=== PATIENT | male | born 1960 | race Caucasian/White ===

== ENCOUNTER 2017-08-19 18:11 | Emergency (ER) | payer OTHER ==
--- NOTE | 2017-08-19 18:14 | PDOC ---
History of Present Illness - General History Source: Patient Exam Limitations: Intoxication - History of Present Illness Initial Comments: 08/19/17 18:16 The patient is a 56 year old male, with a significant past medical history of HTN, who presents to the emergency department with EtOH abuse. The patient was sent from [facility] where he was being admitted for detox. EMS reports the patient was inebriated and unable to answer questions, and reports his breathalyzer being over 400. He denies any recent fevers, chills, headache or dizziness. Allergies: NKA Past surgical history: None reported. Social History: EtOH abuse. Primary Care Physician: None reported. <Taj Alarcon - Last Filed: 08/19/17 21:40> <Peggy Mchugh - Last Filed: 08/20/17 23:04> - General Stated Complaint: INTOX Time Seen by Provider: 08/19/17 18:13 Past History <Taj Alarcon - Last Filed: 08/19/17 21:40> - Past Medical History GI Disorders: Yes HTN: Yes - Suicide/Smoking/Psychosocial Hx Smoking History: Current every day smoker Number of Cigarettes Smoked Daily: 20 'Breaking Loose' booklet given: 11/02/13 Hx Alcohol Use: Yes Substance Use Type: None <Peggy Mchugh - Last Filed: 08/20/17 23:04> - Past Medical History Allergies/Adverse Reactions: Allergies Allergy/AdvReac Type Severity Reaction Status Date / Time No Known Allergies Allergy Verified 08/20/17 11:41 Home Medications: Ambulatory Orders levETIRAcetam [Keppra -] 500 mg PO BID 08/20/17 Review of Systems - Review of Systems Able to Perform ROS?: No (Intoxication) <Taj Alarcon - Last Filed: 08/19/17 21:40> *Physical Exam - Physical Exam Comments: 08/19/17 18:17 GENERAL: Awake, alert. Confusion on time and place. Alcohol on breath. HEAD: No signs of trauma EYES: PERRLA, EOMI, sclera anicteric, conjunctiva clear ENT: Auricles normal inspection, hearing grossly normal, nares patent, oropharynx clear without exudates. Moist mucosa NECK: Normal ROM, supple, no lymphadenopathy, JVD, or masses LUNGS: Breath sounds equal, clear to auscultation bilaterally. No wheezes, and no crackles HEART: Regular rate and rhythm, normal S1 and S2, no murmurs, rubs or gallops ABDOMEN: Soft, nontender, normoactive bowel sounds. No guarding, no rebound. No masses EXTREMITIES: Normal range of motion, no edema. No clubbing or cyanosis. No cords, erythema, or tenderness NEUROLOGICAL: Cranial nerves II through XII grossly intact. SKIN: Warm, Dry, normal turgor, no rashes or lesions noted. <Taj Alarcon - Last Filed: 08/19/17 21:40> ED Treatment Course - LABORATORY CBC & Chemistry Diagram: 08/19/17 18:55 08/19/17 18:55 <Taj Alarcon - Last Filed: 08/19/17 21:40> - LABORATORY CBC & Chemistry Diagram: 08/19/17 18:55 08/19/17 18:55 <Peggy Mchugh - Last Filed: 08/20/17 23:04> *DC/Admit/Observation/Transfer - Attestations Scribe Attestion: 08/19/17 18:17 Documentation prepared by Taj Alarcon, acting as medical and scientific illustrator for Peggy Mchugh MD. <Taj Alarcon - Last Filed: 08/19/17 21:40> <Peggy Mchugh - Last Filed: 08/20/17 23:04> Diagnosis at time of Disposition: Alcohol abuse - Discharge Dispostion Disposition: HOME Condition at time of disposition: Stable - Patient Instructions Printed Discharge Instructions: DI for Alcohol Abuse
[2017-08-19 18:28] VITALS: BP 134/92; PULSE 90; TEMP 98; BMI 29.5
[2017-08-19 19:01] LABS: BASO % 0.4 % (0-2.0); EOS % 0.1 % (0-4.5); HEMATOCRIT 46.2 % (35.4-49); HEMOGLOBIN 15.9 GM/dL (11.7-16.9); LYMPH % 31.5 % (8-40); MCHC 34.3 g/dl (32.0-35.9); MEAN CELL VOLUME 96.4 fl (80-96); MEAN PLT VOLUME 7.8 fl (7.5-11.1); MONO % 9.4 % (3.8-10.2); NEUT % 58.6 % (42.8-82.8); PLATELET COUNT 128 K/MM3 (134-434); RDW 13.6 % (11.9-15.9); WHITE BLOOD COUNT 5.2 K/mm3 (4.0-10.0)
[2017-08-19] MEDS ORDERED: FOLIC ACID INJECTION - 1 MG, THIAMINE HCL 100 MG, MULTIVIT INJECTION ADULT 10 ML in SOD... IVPB ONE (19:04)
[2017-08-19] MEDS ORDERED: SODIUM CHLORIDE IVPB ONE (19:17)
[2017-08-19] MEDS ORDERED: MULTIVIT IVPB ONE (19:17)
[2017-08-19] MEDS ORDERED: FOLIC ACID IVPB ONE (19:17)
[2017-08-19] MEDS ORDERED: THIAMINE HCL 100 MG TABLET (FP) PO ONE (19:30)
[2017-08-19 19:32] LABS: ALBUMIN 4.4 g/dl (3.4-5.0); ALK PHOS 76 U/L (45-117); ANION GAP 13 (8-16); BILIRUBIN,TOTAL 0.6 mg/dL (0.2-1.0); BLOOD UREA NITROGEN 11 mg/dL (7-18); CALCIUM 8.1 mg/dL (8.5-10.1); CHLORIDE 98 mmol/L (98-107); CO2 26 mmol/L (21-32); CREATININE 0.8 mg/dL (0.7-1.3); GLUCOSE,RANDOM 108 mg/dL (74-106); POTASSIUM 3.7 mmol/L (3.5-5.1); SGOT/AST 276 U/L (15-37); SGPT/ALT 233 U/L (12-78); SODIUM 137 mmol/L (136-145); TOT PROT 8.1 g/dl (6.4-8.2)
[2017-08-20] MEDS ORDERED: ONDANSETRON 4 MG/2 ML VIAL ONE
--- NOTE | 2017-08-20 03:04 | PDOC ---
*Physical Exam - Vital Signs Last Vital Signs Temp Pulse Resp BP Pulse Ox 98.0 F 90 18 134/92 99 08/19/17 18:17 08/19/17 18:17 08/19/17 18:17 08/19/17 18:17 08/19/17 18:17 ED Treatment Course - LABORATORY CBC & Chemistry Diagram: 08/19/17 18:55 08/19/17 18:55 - ADDITIONAL ORDERS Additional order review: Laboratory Results 08/19/17 08/19/17 18:55 18:55 Sodium 137 Potassium 3.7 Chloride 98 Carbon Dioxide 26 Anion Gap 13 BUN 11 Creatinine 0.8 Creat Clearance w eGFR > 60 Random Glucose 108 H Calcium 8.1 L Total Bilirubin 0.6 AST 276 H ALT 233 H Alkaline Phosphatase 76 Total Protein 8.1 Albumin 4.4 Alcohol, Quantitative 459.1 H* 08/19/17 18:55 RBC 4.80 MCV 96.4 H MCHC 34.3 RDW 13.6 MPV 7.8 Neutrophils % 58.6 Lymphocytes % 31.5 Monocytes % 9.4 Eosinophils % 0.1 Basophils % 0.4 - Medications Given in the ED: ED Medications Discontinued Medications Generic Name Dose Route Start Last Admin Trade Name Wilbertq PRN Reason Stop Dose Admin Folic Acid 1 mg/ Multivitamins 1,000 mls @ 125 mls/hr 08/19/17 19:17 20:12 /Minerals 10 ml/ Sodium IVPB 08/20/17 03:03 125 mls/hr Chloride ONCE ONE Administration Thiamine HCl 100 mg 08/19/17 19:30 08/19/17 20:12 Vitamin B1 - PO 08/19/17 19:31 100 mg ONCE ONE Administration Medical Decision Making - Medical Decision Making 08/20/17 04:21 Pt endorsed to me by Dr. Mchugh at 3am at end of shift. Presented with bizarre behavior, found to be intoxicated. Sent by [facility]. Will monitor to clinical sobriety and then send back to detox if he wishes to go back. 08/20/17 06:39 Pt reassessed. Pt asleep but awakens to voice, moderate tremors in hands. Will give librium. He requests detox. I called detox, they have space available. Will transfer him to [facility]. *DC/Admit/Observation/Transfer Diagnosis at time of Disposition: Alcohol abuse - Discharge Dispostion Disposition: HOME Condition at time of disposition: Stable Admit: No - Referrals - Patient Instructions Printed Discharge Instructions: DI for Alcohol Abuse - Post Discharge Activity
[2017-08-20] MEDS ORDERED: chlordiazePOXIDE HCL 25 MG CAPSULE ONE (06:45)
[2017-08-20] MEDS ORDERED: chlordiazePOXIDE HCL 25 MG CAPSULE PO ONE (06:47)
== END 2017-08-20 07:15 | disposition home or self-care (01) ==
LOC: JER 18:11
PROC: 3E033GC Introduction of Other Therapeutic Substance into Peripheral Vein, Percutaneous Approach (ICD-10-PCS; principal; 2017-08-19)
DX: F10.220 Alcohol dependence with intoxication, uncomplicated (principal); Y90.8 Blood alcohol level of 240 mg/100 ml or more
CPT/HCPCS: 36415; 70450-TC; 80053; 80307; 85025; 99282-25

== ENCOUNTER 2017-09-14 21:31 | Inpatient (IN) | payer OTHER ==
--- NOTE | 2017-09-14 21:49 | PDOC ---
History of Present Illness - General History Source: Patient Exam Limitations: No Limitations - History of Present Illness Initial Comments: 09/14/17 22:53 Patient is a 56 year male with a significant past medical history of HTN, and alcohol dependency, who presents to the ED with complaints of intoxication. Patient reports being brought into the ED by his daughter due to being heavily intoxicated as well as being unable to stand up. He reports falling earlier today as well as hitting his head when he hit the ground but does not state experiencing any pain. Patient reports ingestion gallons of hard liquor every day. Denies chest pain, Sob. Denies nausea, vomiting. Denies change in vision, slurred speech. Denies contact with sick individuals, out of state travelling. Denies any other symptoms. Allergies: None Social history: Current smoker. Current alcohol use. No illicit drugs. Surgical history: None PMD: None <Yakov Carpio - Last Filed: 09/14/17 22:53> <Mohini Castano - Last Filed: 09/15/17 04:37> - General Stated Complaint: INTOX Time Seen by Provider: 09/14/17 21:48 Past History <Yakov Carpio - Last Filed: 09/14/17 22:53> - Past Medical History Anemia: No Asthma: No Cancer: No Cardiac Disorders: No CVA: No COPD: No Dementia: No Diabetes: No GI Disorders: No Disorders: No HTN: Yes (not on meds.) Hypercholesterolemia: No Kidney Stones: No Liver Disease: No Seizures: Yes (etoh related seizures states last was yesterday.) Thyroid Disease: No - Reproductive History Testicular Surgery: No - Suicide/Smoking/Psychosocial Hx Smoking History: Former smoker Have you smoked in the past 12 months: Yes Number of Cigarettes Smoked Daily: 40 If you are a former smoker, when did you quit?: Pt states he quit 1 month ago. 'Breaking Loose' booklet given: 08/20/17 Hx Alcohol Use: Yes Drug/Substance Use Hx: No Substance Use Type: Alcohol Hx Substance Use Treatment: Yes (last detox a year ago at [facility]) <Mohini Castano - Last Filed: 09/15/17 04:37> - Past Medical History Allergies/Adverse Reactions: Allergies Allergy/AdvReac Type Severity Reaction Status Date / Time No Known Allergies Allergy Verified 09/14/17 22:17 Home Medications: Ambulatory Orders Nebivolol HCl [Bystolic] 5 mg PO DAILY #30 tablet 08/24/17 levETIRAcetam [Keppra -] 500 mg PO BID #60 tablet 08/24/17 Review of Systems - Review of Systems Able to Perform ROS?: No (intox) <Mohini Castano - Last Filed: 09/15/17 04:37> *Physical Exam - Vital Signs Last Vital Signs Temp Pulse Resp BP Pulse Ox 97.2 F L 68 16 145/90 99 09/14/17 22:00 09/14/17 22:00 09/14/17 22:00 09/14/17 22:00 09/14/17 22:00 <Yakov Carpio - Last Filed: 09/14/17 22:53> - Physical Exam Comments: GENERAL: Awake, alert, oriented to place and person. +AOB. HEAD: No signs of trauma EYES: PERRLA, EOMI, sclera anicteric, conjunctiva clear ENT: Auricles normal inspection, hearing grossly normal, nares patent, oropharynx clear without exudates. Moist mucosa NECK: Normal ROM, supple, no lymphadenopathy, JVD, or masses LUNGS: Breath sounds equal, clear to auscultation bilaterally. No wheezes, and no crackles HEART: Regular rate and rhythm, normal S1 and S2, no murmurs, rubs or gallops ABDOMEN: Soft, nontender, normoactive bowel sounds. No guarding, no rebound. No masses EXTREMITIES: Normal range of motion, no edema. No clubbing or cyanosis. No cords, erythema, or tenderness NEUROLOGICAL: Cranial nerves II through XII grossly intact. Normal speech. Motor and sensation intact. Gait not tested due to intoxication. SKIN: Warm, Dry, normal turgor, no rashes or lesions noted. <Mohini Castano - Last Filed: 09/15/17 04:37> Heart Score/ECG Review - ECG Impressions Comment:: EKG read 04:29- Sinus tach 118 bpm, occasional PVCs Similar to EKG from Aug 20 2017 <Mohini Castano - Last Filed: 09/15/17 04:37> ED Treatment Course - LABORATORY CBC & Chemistry Diagram: 09/15/17 00:20 09/15/17 01:47 <Mohini Castano - Last Filed: 09/15/17 04:37> Medical Decision Making - Medical Decision Making 09/15/17 04:09 Pt admitted, as he is still unable to stand with steady gait yet already showing signs of withdrawal. <Mohini Castano - Last Filed: 09/15/17 04:37> *DC/Admit/Observation/Transfer - Attestations Scribe Attestion: 09/14/17 22:54 Documentation prepared by Yakov Carpio, acting as medical affairs manager for Mohini Castano MD, /DO. <Yakov Carpio - Last Filed: 09/14/17 22:53> - Discharge Dispostion Admit: Yes <Mohini Castano - Last Filed: 09/15/17 04:37> Diagnosis at time of Disposition: Alcohol abuse, Alcohol dependence with uncomplicated withdrawal Pancreatitis Qualifiers: Chronicity: acute Pancreatitis type: alcohol induced Acute pancreatitis complication: unspecified Qualified Code(s): K85.20 - Alcohol induced acute pancreatitis without necrosis or infection - Discharge Dispostion Condition at time of disposition: Guarded
[2017-09-14 22:17] VITALS: BMI 27.2
[2017-09-14] MEDS ORDERED: chlordiazePOXIDE HCL 25 MG CAPSULE PO ONE (23:26)
[2017-09-15] MEDS ORDERED: chlordiazePOXIDE HCL 25 MG CAPSULE ONE ×3 (00:27→16:53)
[2017-09-15] MEDS ORDERED: ONDANSETRON 4 MG/2 ML VIAL IVPUSH ONE ×2 (00:35→04:46)
[2017-09-15] MEDS ORDERED: ONDANSETRON 4 MG/2 ML VIAL ONE ×3 (00:39→07:16)
[2017-09-15 01:09] LABS: BASO % 0.1 % (0-2.0); HEMATOCRIT 40.5 % (35.4-49); HEMOGLOBIN 14.2 GM/dL (11.7-16.9); LYMPH % 19.1 % (8-40); MCH 34.4 pg (25.7-33.7); MCHC 35.2 g/dl (32.0-35.9); MEAN CELL VOLUME 97.8 fl (80-96); MONO % 7.9 % (3.8-10.2); NEUT % 72.9 % (42.8-82.8); RBC 4.14 M/mm3 (4.00-5.60); RDW 16.8 % (11.9-15.9)
[2017-09-15 01:55] LABS: PLATELET ESTIMATE DECREASED
[2017-09-15 02:02] LABS: MEAN PLT VOLUME 8.8 fl (7.5-11.1); PLATELET COUNT 105 K/MM3 (134-434)
[2017-09-15 02:59] LABS: ALBUMIN 3.8 g/dl (3.4-5.0); ALK PHOS 59 U/L (45-117); ANION GAP 18 (8-16); BLOOD UREA NITROGEN 25 mg/dL (7-18); CALCIUM 7.9 mg/dL (8.5-10.1); CHLORIDE 90 mmol/L (98-107); CO2 25 mmol/L (21-32); CREATININE 0.7 mg/dL (0.7-1.3); GLUCOSE,RANDOM 161 mg/dL (74-106); SGPT/ALT 210 U/L (12-78); SODIUM 133 mmol/L (136-145); TOT PROT 7.1 g/dl (6.4-8.2)
[2017-09-15 03:14] LABS: LIPASE 1755 U/L (73-393); POTASSIUM 3.3 mmol/L (3.5-5.1)
[2017-09-15 03:15] LABS: SGOT/AST 437 U/L (15-37)
[2017-09-15] MEDS ORDERED: SODIUM CHLORIDE 1,000 ML IV SCH ×3 (03:30→05:45)
--- NOTE | 2017-09-15 05:31 | HP ---
CHIEF COMPLAINT: PCP: HISTORY OF PRESENT ILLNESS: 56 M HTN ETOH use comes in intoxicated. drinks 1 gallon hennesy, and or beer a day. started as soon as he left detox on 08/24/17. having N/V, tremors. says still taking his seizure medication . said he tripped and fell earlier today leading to bruising on his back. denies LOC at the time. Social history: Current smoker. Current alcohol use. No illicit drugs. Surgical history: None PMD: None ER course was notable for: (1) IVF, Zofran, Librium, Ativan Allergies No Known Allergies Allergy (Verified 09/14/17 22:17) HOME MEDICATIONS: Home Medications Medication Instructions Recorded Nebivolol HCl [Bystolic] 5 mg PO DAILY #30 tablet 08/24/17 levETIRAcetam [Keppra -] 500 mg PO BID #60 tablet 08/24/17 REVIEW OF SYSTEMS CONSTITUTIONAL: Absent: fever, chills, diaphoresis, generalized weakness, malaise, loss of appetite, weight change HEENT: Absent: rhinorrhea, nasal congestion, throat pain, throat swelling, difficulty swallowing, mouth swelling, ear pain, eye pain, visual changes CARDIOVASCULAR: Absent: chest pain, syncope, palpitations, irregular heart rate, lightheadedness , peripheral edema RESPIRATORY: Absent: cough, shortness of breath, dyspnea with exertion, orthopnea, wheezing, stridor, hemoptysis GASTROINTESTINAL: Absent: abdominal pain, abdominal distension, nausea, vomiting, diarrhea, constipation, melena, hematochezia GENITOURINARY: Absent: dysuria, frequency, urgency, hesitancy, hematuria, flank pain, genital pain MUSCULOSKELETAL: Absent: myalgia, arthralgia, joint swelling, back pain, neck pain SKIN: Absent: rash, itching, pallor HEMATOLOGIC/IMMUNOLOGIC: Absent: easy bleeding, easy bruising, lymphadenopathy, frequent infections ENDOCRINE: Absent: unexplained weight gain, unexplained weight loss, heat intolerance, cold intolerance NEUROLOGIC: Absent: headache, focal weakness or paresthesias, dizziness, unsteady gait, seizure, mental status changes, bladder or bowel incontinence PSYCHIATRIC: Absent: anxiety, depression, suicidal or homicidal ideation, hallucinations. PHYSICAL EXAMINATION Vital Signs - 24 hr 09/14/17 09/14/17 22:00 23:01 Temperature 97.2 F L Pulse Rate 68 Respiratory 16 Rate Blood Pressure 145/90 O2 Sat by Pulse 99 99 Oximetry (%) GENERAL: Awake, alert, moderate distress HEAD: Normal with no signs of trauma. NECK: Normal range of motion, supple without lymphadenopathy, JVD, or masses. LUNGS: Breath sounds equal, clear to auscultation bilaterally. No wheezes, and no crackles. No accessory muscle use. HEART: Regular rate and rhythm, normal S1 and S2 without murmur, rub or gallop. ABDOMEN: Soft, nontender, not distended, normoactive bowel sounds, no guarding, no rebound, no masses. No hepatomegaly or splenomegaly. MUSCULOSKELETAL: Normal range of motion at all joints. No bony deformities or tenderness. No CVA tenderness. UPPER EXTREMITIES: 2+ pulses, warm, well-perfused. No cyanosis. No clubbing. No peripheral edema. LOWER EXTREMITIES: 2+ pulses, warm, well-perfused. No calf tenderness. No peripheral edema. PSYCHIATRIC: Cooperative. denies hallucinations SKIN: bruising on back in multiple areas, non tender Laboratory Results - last 24 hr 09/15/17 09/15/17 09/15/17 00:20 00:20 01:47 WBC 6.0 D RBC 4.14 Hgb 14.2 Hct 40.5 MCV 97.8 H MCH 34.4 H MCHC 35.2 RDW 16.8 H D Plt Count 105 L MPV 8.8 Neutrophils % 72.9 D Lymphocytes % 19.1 D Monocytes % 7.9 Eosinophils % 0.0 D Basophils % 0.1 Platelet Estimate Decreased Platelet Comment No clumping noted Sodium Cancelled 133 L Potassium Cancelled 3.3 L Chloride Cancelled 90 L Carbon Dioxide Cancelled 25 Anion Gap Cancelled 18 H BUN Cancelled 25 H D Creatinine Cancelled 0.7 Creat Clearance w eGFR Cancelled > 60 Random Glucose Cancelled 161 H D Calcium Cancelled 7.9 L Total Bilirubin Cancelled 1.0 D AST Cancelled 437 H D ALT Cancelled 210 H Alkaline Phosphatase Cancelled 59 Total Protein Cancelled 7.1 Albumin Cancelled 3.8 Lipase Cancelled 1755 H Alcohol, Quantitative Cancelled 09/15/17 01:47 WBC RBC Hgb Hct MCV MCH MCHC RDW Plt Count MPV Neutrophils % Lymphocytes % Monocytes % Eosinophils % Basophils % Platelet Estimate Platelet Comment Sodium Potassium Chloride Carbon Dioxide Anion Gap BUN Creatinine Creat Clearance w eGFR Random Glucose Calcium Total Bilirubin AST ALT Alkaline Phosphatase Total Protein Albumin Lipase Alcohol, Quantitative 292.73 H* ASSESSMENT/PLAN: 56M with ETOH pancreatitis, moderately severe ETOH withdrawal, hypokalemia PAncreatitis NPO IVF LR@ 200 replete electrolytes CXR LDH ETOH withdrawal, CIWA score ~15 ativan 2q2 IV prn standing librium titrate accordingly tele monitor for now hx Seizures - resume keppra HTN - bystolic DVT ppx Visit type - Emergency Visit Emergency Visit: Yes ED Registration Date: 09/15/17 Care time: The patient presented to the Emergency Department on the above date and was hospitalized for further evaluation of their emergent condition. - New Patient This patient is new to me today: Yes Date on this admission: 09/15/17 - Critical Care Critical Care patient: No Hospitalist Screening - Colonoscopy Questionnaire Colonoscopy Questionnaire: Colonoscopy Questionnaire - Patient: 50 - 75 years old and never had a screening colonoscopy: Yes History of colon or rectal polyps, or CA: No History of IBD, Crohn's disease or UC: No History of abdominal radiation therapy as a child: No - Relative: 1 with colon or rectal CA, or polyps at age 60 or younger: Unknown Colon or rectal CA diagnosed at age 45 or younger: Unknown Multiple relatives with colon or rectal CA: Unknown - Outcome: Screening Result: Positive Screen
[2017-09-15] MEDS ORDERED: MAGNESIUM SULF 50% (8.12 MEQ/2 ML-1 GM VIAL) IVPB ONE (05:44)
[2017-09-15] MEDS ORDERED: POTASSIUM CHLORIDE TABS 20 MEQ TABLET.ER (FP) PO ONE (05:44)
[2017-09-15] MEDS ORDERED: LACTATED RINGERS SOLUTION 1,000 ML/1,000 ML INFUS.BAG IV SCH (06:00)
[2017-09-15] MEDS ORDERED: KCL 10 MEQ IVPB 10 MEQ/100 ML INFUS.BAG IVPB SCH (06:00)
[2017-09-15] MEDS: ONDANSETRON 4 MG/2 ML VIAL IVPUSH PRN ×3 (07:13→21:11)
[2017-09-15] MEDS: POTASSIUM CHLORIDE 10 MEQ in SODIUM CHLORIDE 100 ML IVPB SCH (07:58)
[2017-09-15] MEDS ORDERED: ENOXAPARIN NA (PORCINE) 40 MG/0.4 ML DISP.SYRIN SQ SCH (10:00)
[2017-09-15] MEDS: NEBIVOLOL 5 MG TABLET (FP) PO SCH (10:16)
[2017-09-15] MEDS: levETIRAcetam 500 MG TABLET (FP) PO SCH ×2 (10:16→21:05)
[2017-09-15] MEDS: chlordiazePOXIDE HCL 25 MG CAPSULE PO SCH ×3 (11:02→22:00)
[2017-09-15] MEDS ORDERED: ACETAMINOPHEN INJECTION 100 ML IVPB ONE (11:03)
[2017-09-15 11:26] LABS: BASO % 1.9 % (0-2.0); HEMATOCRIT 34.9 % (35.4-49); HEMOGLOBIN 12.2 GM/dL (11.7-16.9); LYMPH % 16.9 % (8-40); MCH 34.2 pg (25.7-33.7); MCHC 34.9 g/dl (32.0-35.9); MEAN CELL VOLUME 98.1 fl (80-96); MEAN PLT VOLUME 8.1 fl (7.5-11.1); MONO % 8.2 % (3.8-10.2); RBC 3.55 M/mm3 (4.00-5.60); RDW 17.2 % (11.9-15.9); WHITE BLOOD COUNT 5.7 K/mm3 (4.0-10.0)
[2017-09-15 11:47] LABS: PLATELET COUNT 45 K/MM3 (134-434); PLATELET ESTIMATE MARKEDLY DECREASED
[2017-09-15 12:07] LABS: ALBUMIN 3.4 g/dl (3.4-5.0); ANION GAP 18 (8-16); BLOOD UREA NITROGEN 18 mg/dL (7-18); CALCIUM 7.5 mg/dL (8.5-10.1); CHLORIDE 93 mmol/L (98-107); CO2 23 mmol/L (21-32); CREATININE 0.6 mg/dL (0.7-1.3); GLUCOSE,RANDOM 117 mg/dL (74-106); SGPT/ALT 179 U/L (12-78); SODIUM 134 mmol/L (136-145); TOT PROT 6.3 g/dl (6.4-8.2)
[2017-09-15 12:11] LABS: ALK PHOS 50 U/L (45-117); BILIRUBIN,TOTAL 1.2 mg/dL (0.2-1.0)
[2017-09-15 12:17] LABS: POTASSIUM 3.5 mmol/L (3.5-5.1); SGOT/AST 2 U/L (15-37)
[2017-09-15 12:18] LABS: LDH 606 U/L (87-241); MAGNESIUM 2.3 mg/dL (1.8-2.4)
[2017-09-15] MEDS: SODIUM CHLORIDE 1,000 ML IV SCH (16:52)
[2017-09-15 20:53] LABS: BASO % 0.2 % (0-2.0); EOS % 0.1 % (0-4.5); HEMATOCRIT 30.8 % (35.4-49); HEMOGLOBIN 11.1 GM/dL (11.7-16.9); LYMPH % 19.5 % (8-40); MCH 35.2 pg (25.7-33.7); MCHC 35.9 g/dl (32.0-35.9); MEAN PLT VOLUME 9.6 fl (7.5-11.1); MONO % 8.6 % (3.8-10.2); NEUT % 71.6 % (42.8-82.8); PLATELET COUNT 38 K/MM3 (134-434); RBC 3.15 M/mm3 (4.00-5.60); RDW 17.1 % (11.9-15.9); WHITE BLOOD COUNT 4.4 K/mm3 (4.0-10.0)
[2017-09-15 21:32] LABS: ALBUMIN 3.3 g/dl (3.4-5.0); ANION GAP 10 (8-16); BILIRUBIN,TOTAL 1.7 mg/dL (0.2-1.0); BLOOD UREA NITROGEN 17 mg/dL (7-18); CALCIUM 7.6 mg/dL (8.5-10.1); CHLORIDE 96 mmol/L (98-107); CO2 28 mmol/L (21-32); CREATININE 0.6 mg/dL (0.7-1.3); GLUCOSE,RANDOM 114 mg/dL (74-106); POTASSIUM 3.4 mmol/L (3.5-5.1); SGOT/AST 372 U/L (15-37); SGPT/ALT 170 U/L (12-78); SODIUM 134 mmol/L (136-145)
[2017-09-15 21:33] LABS: ALK PHOS 46 U/L (45-117)
[2017-09-16] MEDS: ONDANSETRON 4 MG/2 ML VIAL IVPUSH PRN ×4 (01:34→15:28)
[2017-09-16] MEDS: chlordiazePOXIDE HCL 25 MG CAPSULE PO SCH ×4 (05:16→18:03)
[2017-09-16] MEDS: SODIUM CHLORIDE 1,000 ML IV SCH ×2 (05:26→17:50)
[2017-09-16 07:24] LABS: INR 0.99 (0.82-1.09); PROTHROMBIN TIME (PATIENT) 11.2 SEC (9.98-11.88)
[2017-09-16 07:26] LABS: ACTIVATED PTT 26.1 SECONDS (26.9-34.4)
--- NOTE | 2017-09-16 07:26 | PN ---
Teaching Attending Note Name of Resident: Mary Sanabria ATTENDING PHYSICIAN STATEMENT I saw and evaluated the patient. I reviewed the resident's note and discussed the case with the resident. I agree with the resident's findings and plan as documented. SUBJECTIVE:c/o nausea and BOYLE. states he has not vomited. drank a gallon of Henessy day prior to admission and thinks he had a seizure that day but hes slightly confused with time. never been hospitalized for ETOH withdrawals or had pancreatitis. denies CP, SOB, fever, chills, V/C/D, auditory/visual/tactile hallucinations. Had colonoscopy 5 years ago and reports it negative OBJECTIVE: Last Vital Signs Temp Pulse Resp BP Pulse Ox 98.9 F 20 L 69 H 144/77 96 09/16/17 06:00 09/16/17 06:00 09/16/17 06:00 09/16/17 06:00 09/15/17 20:47 General mild anxious CV S1 S2 RRR no murmur/rub/gallop Lungs CTA B/L no wheezing/rales/rhonchi Abdomen soft NT/ND obese Extremities +tremor ASSESSMENT AND PLAN: 56yo M wtih PMH continuous ETOH dependence, ETOH withdrawal seziures, HTN and hypertriglyceridemia presented to the ER with nausea and vomiting and found to have acute pancreatitis 1. Acute Pancreatitis- clinically improved. will start clear liquids. if tolerating will d/c IVF. abdominal u/s pending to r/o gallstones. TG level pending. d/c milton. d/c fingersticks as not DM and sugars stable. 2. Acute transaminits- due to ETOH use however cannot r/o stone. awaiting U/s results. check hepatitis panel. reports no hx of liver disease 3. ETOH withdrawals- CIWA . on librium taper. does not want inpatient rehab. cont thiamine/folate/MVI 4. Hypokalemia- Kcl po 5. Thrombocytopenia- due to ETOH use. no signs of bleeding. d/c lovenox at this time 6. Macrocytic anemia- some dilutional component. no signs of bleeding. recent colonscopy negative. trend Hgb. normal txn thresholds 7. withdrawal seizures- no tonic/clonic movements. cont keppra 8. HTN- controlled. cont home medications 9. DVT ppx- place SCD. hold lovenox given thrombocytopenia 10. can d/c cardiac monitoring
[2017-09-16 08:18] LABS: BASO % 0.1 % (0-2.0); EOS % 0.1 % (0-4.5); HEMATOCRIT 30.9 % (35.4-49); HEMOGLOBIN 10.7 GM/dL (11.7-16.9); LYMPH % 20.9 % (8-40); MCH 34.6 pg (25.7-33.7); MCHC 34.6 g/dl (32.0-35.9); MONO % 7.6 % (3.8-10.2); NEUT % 71.3 % (42.8-82.8); RBC 3.09 M/mm3 (4.00-5.60); RDW 16.8 % (11.9-15.9); WHITE BLOOD COUNT 5.3 K/mm3 (4.0-10.0)
[2017-09-16 08:33] LABS: PLATELET COUNT 36 K/MM3 (134-434)
[2017-09-16] MEDS ORDERED: PNEUMOCOCCAL 23 VACCINE 0.5 ML VIAL IM ONE (08:45)
--- NOTE | 2017-09-16 08:50 | PN ---
Physical Exam: SUBJECTIVE: Patient seen and examined in AM. No events overnight. Abdominal pain has improved, but continues to have some nausea; no vomiting. Denies fever , chills, CP, no visual/auditory/tactile hallucinations. OBJECTIVE: Vital Signs Period Temp Pulse Resp BP Sys/Valdes Pulse Ox Last 24 Hr 98.0 F-99.2 F 20-113 16-85 114-144/60-78 96-100 Intake & Output 09/13/17 09/14/17 09/15/17 09/16/17 23:59 23:59 23:59 23:59 Intake Total 2425 Output Total 2500 3750 Balance -2500 -1325 Weight 86.183 kg 86.183 kg GENERAL: lying in position, mildly distressed, aaox3 HEENT: sclera anicteric, conjunctiva clear, MMM LUNGS: CTAB HEART: rrr, normal s1/s2, no m/r/g ABDOMEN: soft,obese, NTND, +bowel sounds EXTREMITIES: 2+ DP pulses, wwp, no edema NEUROLOGICAL: + hand tremors, no asterixis CBC, BMP 09/16/17 06:00 09/16/17 06:00 Hepatic Panel Total Bilirubin 2.1 mg/dL (0.2-1.0) H D 09/16/17 06:00 AST 482 U/L (15-37) H D 09/16/17 06:00 ALT 182 U/L (12-78) H 09/16/17 06:00 Alkaline Phosphatase 41 U/L (45-117) L 09/16/17 06:00 Albumin 3.5 g/dl (3.4-5.0) 09/16/17 06:00 Active Medications Chlordiazepoxide HCl (Librium -) 25 mg PO Q6HPO [facility] Stop: 09/17/17 00:01 Folic Acid (Folic Acid -) 1 mg PO DAILY [facility] Sodium Chloride (Normal Saline -) 1,000 mls @ 200 mls/hr IV ASDIR [facility] Last Admin: 09/16/17 05:26 Dose: 200 mls/hr Influenza Virus Vaccine Quadrival (Flulaval Quad [id number]) 60 mcg IM .ONCE ONE Stop: 09/16/17 10:01 Levetiracetam (Keppra -) 500 mg PO BID [facility] Last Admin: 09/15/17 21:05 Dose: 500 mg Lorazepam (Ativan Injection -) 2 mg IVPUSH Q2H PRN PRN Reason: ANXIETY Multivitamins/Minerals/Vitamin C (Tab-A-Vit -) 1 tab PO DAILY MATTY Nebivolol (Bystolic -) 5 mg PO DAILY MATTY Last Admin: 09/15/17 10:16 Dose: 5 mg Ondansetron HCl (Zofran Injection) 4 mg IVPUSH Q4H PRN PRN Reason: NAUSEA AND/OR VOMITING Last Admin: 09/16/17 05:16 Dose: 4 mg Thiamine HCl (Vitamin B1 -) 100 mg PO DAILY [facility] ASSESSMENT/PLAN: 56yo M with PMH of EtOH abuse and withdrawal seizures, HTN, and hypertriglyceridemia who p/w nausea and vomiting and found to have acute pancreatitis. #acute pancreatitis likely 2/2 EtOH abuse, abdominal pain improving -Start Clears today, if tolerates will d/c IVFs -f/u RUQ sono to r/o cholelithiaisis -d/c Torrez #EtOH withdrawal -CIWA -Librium taper -Ativan PRN -thiamine/folate/mvi #acute transaminitis, likely 2/2 EtOH abuse -will trend -f/u hepatic panel #thrombocytopenia, likely 2/2 EtOH abuse -d/c Lovenox -monitor for signs of bleeding #h/o seizure - c/w home Keppra #HTN - c/w home bystolic #FEN: NS@200cc / repleted K / Clears #PPX DVT - SCD's #DISPO: transfer to M/S FULL code d/w Dr. Azar Ocampo MD PGY1 - Internal Medicine Visit type - Emergency Visit Emergency Visit: No - New Patient This patient is new to me today: Yes Date on this admission: 09/16/17 - Critical Care Critical Care patient: No
[2017-09-16] MEDS: FOLIC ACID 1 MG TABLET (FP) PO SCH (09:02)
[2017-09-16] MEDS: NEBIVOLOL 5 MG TABLET (FP) PO SCH (09:02)
[2017-09-16] MEDS: levETIRAcetam 500 MG TABLET (FP) PO SCH ×2 (09:02→22:03)
[2017-09-16] MEDS ORDERED: FLU VACCINE QUAD 60 MCG/0.5 ML (MDV 17-18) IM ONE (10:00)
[2017-09-16] MEDS ORDERED: PNEUMOC 13-VAL CONJ-DIP CRM/PF 0.5 ML DISP.SYRIN IM ONE (10:00)
[2017-09-16] MEDS: THIAMINE HCL 100 MG TABLET (FP) PO SCH (11:41)
[2017-09-16 13:37] LABS: ANION GAP 6 (8-16); BLOOD UREA NITROGEN 15 mg/dL (7-18); CALCIUM 8.5 mg/dL (8.5-10.1); CHLORIDE 99 mmol/L (98-107); CO2 29 mmol/L (21-32); CREATININE 0.6 mg/dL (0.7-1.3); POTASSIUM 3.1 mmol/L (3.5-5.1); SODIUM 134 mmol/L (136-145)
[2017-09-16 13:38] LABS: ALBUMIN 3.5 g/dl (3.4-5.0); BILIRUBIN,TOTAL 2.1 mg/dL (0.2-1.0); SGOT/AST 482 U/L (15-37); SGPT/ALT 182 U/L (12-78)
[2017-09-16 13:39] LABS: ALK PHOS 41 U/L (45-117)
[2017-09-16 13:40] LABS: GLUCOSE,RANDOM 114 mg/dL (74-106)
[2017-09-16] MEDS: MULTIVITAMINS (DAILY MVI) TABLET (FP) PO SCH (13:41)
[2017-09-16] MEDS ORDERED: POTASSIUM CHLORIDE ORAL LIQUID 20 MEQ/15 ML PO ONE (19:42)
--- NOTE | 2017-09-16 21:43 | EKG ---
Test Reason : Blood Pressure : / mmHG Vent. Rate : 118 BPM Atrial Rate : 118 BPM P-R Int : 184 ms QRS Dur : 106 ms QT Int : 316 ms P-R-T Axes : 043 -20 062 degrees QTc Int : 442 ms SINUS TACHYCARDIA WITH FREQUENT PREMATURE VENTRICULAR COMPLEXES INCOMPLETE LEFT BUNDLE BRANCH BLOCK NONSPECIFIC ST AND T WAVE ABNORMALITY BORDERLINE ECG WHEN COMPARED WITH ECG OF 21-AUG-2017 09:23, PREMATURE VENTRICULAR COMPLEXES ARE NOW PRESENT VENT. RATE HAS INCREASED BY 41 BPM INCOMPLETE LEFT BUNDLE BRANCH BLOCK IS NOW PRESENT Confirmed by AMENA BOWENS MD ([id number]) on 09/16/2017 9:43:42 PM Referred By: Confirmed By:AMENA BOWENS MD
[2017-09-17] MEDS: chlordiazePOXIDE HCL 25 MG CAPSULE PO SCH (00:03)
--- NOTE | 2017-09-17 08:33 | PN ---
Physical Exam: SUBJECTIVE: Patient seen and examined. No events overnight. c/o non-bloody diarrhea; no nauseas or vomiting with Clears yesterday; Abdominal pain improved ; denies fever, chills, CP OBJECTIVE: Vital Signs Period Temp Pulse Resp BP Sys/Valdes Pulse Ox Last 24 Hr 98 F-99.0 F 16-18 18-89 99-136/64-94 98-99 Intake & Output 09/14/17 09/15/17 09/16/17 09/17/17 23:59 23:59 23:59 23:59 Intake Total 3425 1200 Output Total 2500 3750 Balance -2500 -325 1200 Weight 86.183 kg 86.183 kg GENERAL: lying in bed, less anxious today, aaox3 HEENT: sclera anicteric, conjunctiva clear, MMM LUNGS: CTAB HEART: rrr, normal s1/s2, no m/r/g ABDOMEN: soft,obese, NTND, +bowel sounds EXTREMITIES: 2+ DP pulses, wwp, no edema NEUROLOGICAL: + hand tremors, no asterixis CBC, BMP 09/17/17 10:30 09/17/17 10:30 Hepatic Panel Total Bilirubin 2.0 mg/dL (0.2-1.0) H 09/17/17 10:30 Direct Bilirubin 0.8 mg/dL (0.0-0.2) H 09/17/17 10:30 AST 422 U/L (15-37) H 09/17/17 10:30 ALT 237 U/L (12-78) H D 09/17/17 10:30 Alkaline Phosphatase 50 U/L (45-117) D 09/17/17 10:30 Albumin 3.4 g/dl (3.4-5.0) 09/17/17 10:30 Mg - 2.0 IMAGING: RUQ U/S 09/16/17: Gallbladder polyp (5mm); no e/o cholelithiasis, sludge, abnormal GB wall thickness or dilated ducts; enlarged fatty liver Active Medications Chlordiazepoxide HCl (Librium -) 15 mg PO [id number] [facility] Stop: 09/17/17 23:01 Last Admin: 09/17/17 11:00 Dose: Not Given Folic Acid (Folic Acid -) 1 mg PO DAILY [facility] Last Admin: 09/17/17 09:59 Dose: 1 mg Famotidine/Sodium Chloride (Pepcid 20 Mg Premixed Ivpb -) 20 mg in 50 mls @ 100 mls/hr IVPB BID [facility] Last Admin: 09/17/17 10:14 Dose: 100 mls/hr Levetiracetam (Keppra -) 500 mg PO BID [facility] Last Admin: 09/17/17 09:59 Dose: 500 mg Lorazepam (Ativan Injection -) 2 mg IVPUSH Q2H PRN PRN Reason: ANXIETY Last Admin: 09/17/17 01:35 Dose: 2 mg Multivitamins/Minerals/Vitamin C (Tab-A-Vit -) 1 tab PO DAILY [facility] Last Admin: 09/17/17 09:59 Dose: 1 tab Nebivolol (Bystolic -) 5 mg PO DAILY [facility] Last Admin: 09/17/17 10:00 Dose: 5 mg Ondansetron HCl (Zofran Injection) 4 mg IVPUSH Q4H PRN PRN Reason: NAUSEA AND/OR VOMITING Last Admin: 09/16/17 15:28 Dose: 4 mg Potassium Chloride (Potassium Chloride Oral Liquid) 40 meq PO BID [facility] Last Admin: 09/17/17 12:33 Dose: 40 meq Thiamine HCl (Vitamin B1 -) 100 mg PO DAILY [facility] Last Admin: 09/17/17 09:59 Dose: 100 mg ASSESSMENT/PLAN: 56yo M with PMH of EtOH abuse and withdrawal seizures, HTN, and hypertriglyceridemia who p/w nausea and vomiting and found to have acute pancreatitis. #acute pancreatitis likely 2/2 EtOH abuse, abdominal pain improving -Tolerated Clears yesterday - will advance to Regular diet today -d/c IVFs -Pepcid BID for dyspepsia #EtOH withdrawal -Librium taper - will be completed tomorrow -Ativan PRN -thiamine/folate/mvi #hypokalemia, 2.5 today (Mg 2.0) -Repleted with IV and PO; will repeat labs in PM #diarrhea, low suspicion for infection: afebrile, no recent abx, no leukocytosis -will trial loperamide and monitor for signs of infection #acute transaminitis, likely 2/2 EtOH abuse, downtrending #thrombocytopenia, likely 2/2 EtOH abuse -monitor for signs of bleeding #h/o seizure - c/w home Keppra #HTN - c/w home bystolic #FEN: PO fluids / K repleted / Clears #PPX DVT - SCD's #PT - evaluation for d/c planning #DISPO: M/S, anticipate 24-48H, detox completed tomorrow, f/u PT eval FULL code d/w Dr. Azar Ocampo MD PGY1 - Internal Medicine Visit type - Emergency Visit Emergency Visit: No - New Patient This patient is new to me today: No - Critical Care Critical Care patient: No
[2017-09-17] MEDS: levETIRAcetam 500 MG TABLET (FP) PO SCH ×2 (09:59→21:42)
[2017-09-17] MEDS: THIAMINE HCL 100 MG TABLET (FP) PO SCH (09:59)
[2017-09-17] MEDS: MULTIVITAMINS (DAILY MVI) TABLET (FP) PO SCH (09:59)
[2017-09-17] MEDS: FOLIC ACID 1 MG TABLET (FP) PO SCH (09:59)
[2017-09-17] MEDS ORDERED: FLU VACCINE QUAD 60 MCG/0.5 ML (MDV 17-18) IM ONE (10:00)
[2017-09-17] MEDS: NEBIVOLOL 5 MG TABLET (FP) PO SCH (10:00)
[2017-09-17] MEDS: FAMOTIDINE 20 MG/50 ML IVPB 20 MG/50 ML MG IVPB SCH ×2 (10:14→21:43)
[2017-09-17] MEDS: chlordiazePOXIDE 5 MG CAPSULE PO SCH ×4 (10:14→22:32)
[2017-09-17] MEDS ORDERED: LOPERAMIDE HCL 2 MG CAPSULE PO ONE (10:30)
[2017-09-17 10:50] LABS: BASO % 0.2 % (0-2.0); HEMATOCRIT 33.8 % (35.4-49); HEMOGLOBIN 11.9 GM/dL (11.7-16.9); LYMPH % 21.8 % (8-40); MCH 34.8 pg (25.7-33.7); MCHC 35.1 g/dl (32.0-35.9); MEAN CELL VOLUME 99.3 fl (80-96); MEAN PLT VOLUME 10.1 fl (7.5-11.1); MONO % 6.2 % (3.8-10.2); NEUT % 70.8 % (42.8-82.8); PLATELET COUNT 49 K/MM3 (134-434); RDW 16.9 % (11.9-15.9); WHITE BLOOD COUNT 6.1 K/mm3 (4.0-10.0)
[2017-09-17 11:14] LABS: ALBUMIN 3.4 g/dl (3.4-5.0); ANION GAP 12 (8-16); BILIRUBIN,DIRECT 0.8 mg/dL (0.0-0.2); BLOOD UREA NITROGEN 7 mg/dL (7-18); CALCIUM 8.1 mg/dL (8.5-10.1); CHLORIDE 97 mmol/L (98-107); CO2 27 mmol/L (21-32); CREATININE 0.7 mg/dL (0.7-1.3); GLUCOSE,RANDOM 153 mg/dL (74-106); SGPT/ALT 237 U/L (12-78); SODIUM 136 mmol/L (136-145)
[2017-09-17 11:16] LABS: ALK PHOS 50 U/L (45-117); TOT PROT 6.3 g/dl (6.4-8.2)
[2017-09-17 11:29] LABS: SGOT/AST 422 U/L (15-37)
[2017-09-17 11:32] LABS: POTASSIUM 2.5 mmol/L (3.5-5.1)
[2017-09-17] MEDS ORDERED: KCL 10 MEQ IVPB 10 MEQ/100 ML INFUS.BAG IVPB SCH ×3 (12:00→19:30)
[2017-09-17] MEDS ORDERED: POTASSIUM CHLORIDE ORAL LIQUID 20 MEQ/15 ML PO SCH (12:00)
--- NOTE | 2017-09-17 12:08 | PN ---
Teaching Attending Note Name of Resident: May Ocampo ATTENDING PHYSICIAN STATEMENT I saw and evaluated the patient. I reviewed the resident's note and discussed the case with the resident. I agree with the resident's findings and plan as documented. SUBJECTIVE:c/o diarrhea. 3 loose BM yesterday. no assoc adbominal pain. no recent abx use. denies CP, SOB, fever, chills, N/V/C OBJECTIVE: Last Vital Signs Temp Pulse Resp BP Pulse Ox 98.2 F 19 L 93 H 140/82 98 09/17/17 05:40 09/17/17 08:29 09/17/17 08:29 09/17/17 08:29 09/17/17 05:41 General NAD CV S1 S2 RRR no murmur/rub/gallop Lungs CTA B/L no wheezing/rales/rhonchi Abdomen soft NT/ND obese Extremities +tremor ASSESSMENT AND PLAN: 56yo M wtih PMH continuous ETOH dependence, ETOH withdrawal seziures, HTN and hypertriglyceridemia presented to the ER with nausea and vomiting and found to have acute pancreatitis 1. Acute Pancreatitis- clinically improved. tolerating liquids advance to regular diet. d/c IVF. u/s did not show gallstones only possible gallbladder polyp that will need to be monitored as outpatient. 2. Acute transaminits- due to ETOH. trending down. no acute cholecystitis or gallstones. 3. Diarrhea- low concern for cdiff, afebrile, no leukocytosis no abdominal pain. will start loperamide 4. ETOH withdrawals- CIWA 4. on librium taper, will complete tomorrow. does not want inpatient rehab. cont thiamine/folate/MVI 5. Hypokalemia- Kcl po and IV. repeat this afternoon 6. Thrombocytopenia- due to ETOH use. no signs of bleeding. improved 7. Macrocytic anemia- some dilutional component. no signs of bleeding. recent colonscopy negative. trend Hgb. normal txn thresholds 8. withdrawal seizures- no tonic/clonic movements. cont keppra 9. HTN- controlled. cont home medications 10. DVT ppx- place SCD. hold lovenox given thrombocytopenia 11. PT assessment. may need ERICH on discharge. possible d/c tomorrow if able to ambulate.
[2017-09-17] MEDS: POTASSIUM CHLORIDE 10 MEQ in SODIUM CHLORIDE 100 ML IVPB SCH ×5 (13:32→22:05)
[2017-09-17] MEDS ORDERED: LOPERAMIDE HCL 2 MG CAPSULE PO PRN (16:31)
[2017-09-17 18:41] LABS: ALBUMIN 3.2 g/dl (3.4-5.0); ANION GAP 8 (8-16); BLOOD UREA NITROGEN 7 mg/dL (7-18); CHLORIDE 101 mmol/L (98-107); CO2 28 mmol/L (21-32); GLUCOSE,RANDOM 106 mg/dL (74-106); SODIUM 137 mmol/L (136-145)
[2017-09-17 18:43] LABS: ALK PHOS 55 U/L (45-117); BILIRUBIN,TOTAL 1.5 mg/dL (0.2-1.0); CREATININE 0.6 mg/dL (0.7-1.3); SGOT/AST 374 U/L (15-37); SGPT/ALT 225 U/L (12-78); TOT PROT 6.2 g/dl (6.4-8.2)
[2017-09-17 19:05] LABS: POTASSIUM 2.9 mmol/L (3.5-5.1)
[2017-09-17] MEDS ORDERED: POTASSIUM CHLORIDE TABS 20 MEQ TABLET.ER (FP) PO ONE ×2 (19:22→21:45)
[2017-09-17] MEDS ORDERED: POTASSIUM CHLORIDE 10 MEQ in SODIUM CHLORIDE 100 ML IVPB SCH (19:30)
[2017-09-17] MEDS ORDERED: PT OWN MED DRAWER 7, Y5N ONE (21:22)
[2017-09-18] MEDS: POTASSIUM CHLORIDE 10 MEQ in SODIUM CHLORIDE 100 ML IVPB SCH (00:37)
[2017-09-18 06:59] LABS: BASO % 0.4 % (0-2.0); EOS % 2.2 % (0-4.5); HEMATOCRIT 36.1 % (35.4-49); HEMOGLOBIN 12.6 GM/dL (11.7-16.9); LYMPH % 27.3 % (8-40); MCH 34.9 pg (25.7-33.7); MEAN CELL VOLUME 99.9 fl (80-96); MEAN PLT VOLUME 9.5 fl (7.5-11.1); MONO % 7.3 % (3.8-10.2); NEUT % 62.8 % (42.8-82.8); PLATELET COUNT 72 K/MM3 (134-434); RBC 3.62 M/mm3 (4.00-5.60); RDW 16.8 % (11.9-15.9); WHITE BLOOD COUNT 6.2 K/mm3 (4.0-10.0)
[2017-09-18 07:21] LABS: CHLORIDE 96 mmol/L (98-107); POTASSIUM 3.2 mmol/L (3.5-5.1); SODIUM 137 mmol/L (136-145)
[2017-09-18 07:30] LABS: ALBUMIN 3.5 g/dl (3.4-5.0); ALK PHOS 56 U/L (45-117); ANION GAP 13 (8-16); BILIRUBIN,TOTAL 2.1 mg/dL (0.2-1.0); BLOOD UREA NITROGEN 7 mg/dL (7-18); CALCIUM 8.4 mg/dL (8.5-10.1); CO2 28 mmol/L (21-32); CREATININE 0.6 mg/dL (0.7-1.3); GLUCOSE,RANDOM 109 mg/dL (74-106); SGOT/AST 339 U/L (15-37); SGPT/ALT 248 U/L (12-78); TOT PROT 6.7 g/dl (6.4-8.2)
[2017-09-18] MEDS ORDERED: LORazepam 2 MG/ML SDV VIAL IVPUSH PRN (07:32)
--- NOTE | 2017-09-18 07:44 | PN ---
Teaching Attending Note Name of Resident: May Ocampo ATTENDING PHYSICIAN STATEMENT I saw and evaluated the patient. I reviewed the resident's note and discussed the case with the resident. I agree with the resident's findings and plan as documented with exceptions mentioned below. SUBJECTIVE: Patient seen and examined. denies any nausea, vomiting or abdominal pain, tolerating diet well. However, multiple watery stools this AM and reports being in a 'daze' since been off drinking, not a new complaint. Also similar prior history when has been off alcohol. OBJECTIVE: Vital Signs Period Temp Pulse Resp BP Sys/Vlades Pulse Ox Last 24 Hr 97.8 F-98.6 F 19-80 20-93 126-147/82-92 97-97 Intake & Output 09/15/17 09/16/17 09/17/17 09/18/17 23:59 23:59 23:59 23:59 Intake Total 3425 1700 750 Output Total 2500 3750 Balance -2500 -325 1700 750 Weight 190 lb General sitting in bed in no acute distress Chest CTAB, no rales or wheezing Abdomen soft, obese, NT, Positive bowel sounds, no voluntary or involuntary guarding or rigidity noted Extremities no edema Home Medication List Medication Instructions Recorded Confirmed Type Icosapent Ethyl [Vascepa] 1 gm PO DAILY 09/15/17 History Active Medications Generic Name Dose Route Start Last Admin Trade Name Wilbertq PRN Reason Stop Dose Admin Folic Acid 1 mg 09/16/17 10:00 09/17/17 09:59 Folic Acid - PO 1 mg DAILY MATTY Administration Famotidine/Sodium Chloride 20 mg in 50 mls @ 100 mls/hr 09/17/17 10:00 21:43 Pepcid 20 Mg Premixed Ivpb - IVPB 100 mls/hr BID MATTY Administration Levetiracetam 500 mg 09/15/17 10:00 09/17/17 21:42 Keppra - PO 500 mg BID MATTY Administration Loperamide HCl 4 mg 09/17/17 16:31 09/17/17 21:42 Imodium - PO 4 mg Q6H PRN Administration DIARRHEA Lorazepam 0.5 mg 09/18/17 07:32 Ativan Injection - IVPUSH Q6H PRN ANXIETY Multivitamins/Minerals/Vitamin C 1 tab 09/16/17 10:00 09/17/17 09:59 Tab-A-Vit - PO 1 tab DAILY MATTY Administration Nebivolol 5 mg 09/15/17 10:00 09/17/17 10:00 Bystolic - PO 5 mg DAILY MATTY Administration Ondansetron HCl 4 mg 09/15/17 05:52 09/16/17 15:28 Zofran Injection IVPUSH 4 mg Q4H PRN Administration NAUSEA AND/OR VOMITING Thiamine HCl 100 mg 09/16/17 10:00 09/17/17 09:59 Vitamin B1 - PO 100 mg DAILY MATTY Administration Laboratory Results - last 24 hr 09/15/17 09/15/17 09/17/17 08:32 08:44 10:30 WBC 6.1 RBC 3.40 L Hgb 11.9 D Hct 33.8 L MCV 99.3 H MCH 34.8 H MCHC 35.1 RDW 16.9 H Plt Count 49 L D MPV 10.1 Neutrophils % 70.8 Lymphocytes % 21.8 Monocytes % 6.2 Eosinophils % 1.0 D Basophils % 0.2 Sodium Potassium Chloride Carbon Dioxide Anion Gap BUN Creatinine Creat Clearance w eGFR POC Glucometer [phone] Random Glucose Calcium Magnesium Total Bilirubin Direct Bilirubin AST ALT Alkaline Phosphatase Total Protein Albumin 09/17/17 09/17/17 09/18/17 10:30 17:00 06:16 WBC 6.2 RBC 3.62 L Hgb 12.6 Hct 36.1 MCV 99.9 H MCH 34.9 H MCHC 35.0 RDW 16.8 H Plt Count 72 L D MPV 9.5 Neutrophils % 62.8 Lymphocytes % 27.3 D Monocytes % 7.3 Eosinophils % 2.2 D Basophils % 0.4 Sodium 136 137 Potassium 2.5 L* 2.9 L* Chloride 97 L 101 Carbon Dioxide 27 28 Anion Gap 12 8 BUN 7 D 7 Creatinine 0.7 0.6 L Creat Clearance w eGFR > 60 > 60 POC Glucometer Random Glucose 153 H D 106 D Calcium 8.1 L 8.0 L Magnesium 2.0 Total Bilirubin 2.0 H 1.5 H D Direct Bilirubin 0.8 H AST 422 H 374 H ALT 237 H D 225 H Alkaline Phosphatase 50 D 55 Total Protein 6.3 L 6.2 L Albumin 3.4 3.2 L 09/18/17 06:16 WBC RBC Hgb Hct MCV MCH MCHC RDW Plt Count MPV Neutrophils % Lymphocytes % Monocytes % Eosinophils % Basophils % Sodium 137 Potassium 3.2 L Chloride 96 L Carbon Dioxide 28 Anion Gap 13 BUN 7 Creatinine 0.6 L Creat Clearance w eGFR > 60 POC Glucometer Random Glucose 109 H Calcium 8.4 L Magnesium 2.0 Total Bilirubin 2.1 H D Direct Bilirubin AST 339 H ALT 248 H Alkaline Phosphatase 56 Total Protein 6.7 Albumin 3.5 Ultrasound fatty enlarged liver, probably gall bladder polyp ASSESSMENT AND PLAN: 56yo M wtih PMH continuous ETOH dependence, ETOH withdrawal seziures, HTN and hypertriglyceridemia presented to the ER with nausea and vomiting and found to have acute pancreatitis -Acute pancreatitis, likely alcohol mediated -Acute transaminiitis, likely alcohol related -DIarrhea -Dizziness, ?hypovolumia +/- alcohol related neuropathy with autonomic dysfunction -ETOH withdrawal syndrome/Alcohol abuse/dependence -Hypokalemia -Thrombocytopenia, suspect alcohol mediated bone marrow suppression -Macrocytic anemia -Seizures, h/o alcohol withdrawal seizures -HTN Plan: Tolerating diet well, outpatient follow up for Gall bladder polyp LFTs trended down, INR normal on admission Check EKG and orthostatics. Still with diarrhea, hold loperamide, check Stool WBC and C difficile. S/p librium taper, d/c ativan. REplete K PLatelets improved, SCDs when in bed Outpatient h/h followup, recent colonoscopy neg. Continue keppra. Refused inpatient detox rehab PT eval, dispo planning in 24 hours pending improvement in diarrhea, neg w/u and no new events. Plan discussed with patient in detail, all questions answered.
[2017-09-18] MEDS ORDERED: POTASSIUM CHLORIDE ORAL LIQUID 20 MEQ/15 ML PO ONE (09:00)
--- NOTE | 2017-09-18 10:25 | PN ---
Physical Exam: SUBJECTIVE: Patient seen and examined this AM. c/o dizziness/lightheadedness this AM; denies BOYLE, vision changes, CP, abdominal pain, n/v, fever, chills. Tolerating diet. continues to have watery, non-bloody diarrhea. OBJECTIVE: Vital Signs Period Temp Pulse Resp BP Sys/Valdes Pulse Ox Last 24 Hr 97.8 F-98.6 F 19-80 20-92 126-147/86-92 97 GENERAL: sitting in bed, nad, aaox3 HEENT: sclera anicteric, conjunctiva clear, MMM LUNGS: CTAB HEART: rrr, normal s1/s2, no m/r/g ABDOMEN: soft,obese, NTND, +bowel sounds EXTREMITIES: 2+ DP pulses, wwp, no edema NEUROLOGICAL: + hand tremors, no asterixis CBC, BMP 09/18/17 06:16 09/18/17 06:16 Hepatic Panel Total Bilirubin 2.1 mg/dL (0.2-1.0) H D 09/18/17 06:16 Direct Bilirubin 0.8 mg/dL (0.0-0.2) H 09/17/17 10:30 AST 339 U/L (15-37) H 09/18/17 06:16 ALT 248 U/L (12-78) H 09/18/17 06:16 Alkaline Phosphatase 56 U/L (45-117) 09/18/17 06:16 Albumin 3.5 g/dl (3.4-5.0) 09/18/17 06:16 Active Medications Folic Acid (Folic Acid -) 1 mg PO DAILY [facility] Last Admin: 09/18/17 11:32 Dose: 1 mg Famotidine/Sodium Chloride (Pepcid 20 Mg Premixed Ivpb -) 20 mg in 50 mls @ 100 mls/hr IVPB BID [facility] Last Admin: 09/18/17 11:32 Dose: 100 mls/hr Levetiracetam (Keppra -) 500 mg PO BID [facility] Last Admin: 09/18/17 11:32 Dose: 500 mg Lorazepam (Ativan Injection -) 0.5 mg IVPUSH Q6H PRN PRN Reason: ANXIETY Multivitamins/Minerals/Vitamin C (Tab-A-Vit -) 1 tab PO DAILY [facility] Last Admin: 09/18/17 11:32 Dose: 1 tab Nebivolol (Bystolic -) 5 mg PO DAILY [facility] Last Admin: 09/18/17 11:32 Dose: 5 mg Ondansetron HCl (Zofran Injection) 4 mg IVPUSH Q4H PRN PRN Reason: NAUSEA AND/OR VOMITING Last Admin: 09/16/17 15:28 Dose: 4 mg Potassium Chloride (Potassium Chloride Oral Liquid) 40 meq PO BID [facility] Thiamine HCl (Vitamin B1 -) 100 mg PO DAILY [facility] Last Admin: 09/18/17 11:32 Dose: 100 mg ASSESSMENT/PLAN: 56yo M with PMH of EtOH abuse and withdrawal seizures, HTN, and hypertriglyceridemia who p/w nausea and vomiting and found to have acute pancreatitis. #acute pancreatitis likely 2/2 EtOH abuse, resolved, tolerating Regular food #Dyspepsia - Pepcid BID PRN #EtOH withdrawal, detox completed -Ativan PRN -thiamine/folate/mvi -pt considering rehab #hypokalemia, improving -40 KCl mEQ PO BID #diarrhea -send stool studies to r/o infection #acute transaminitis, likely 2/2 EtOH abuse, downtrending #thrombocytopenia, likely 2/2 EtOH abuse, improving -monitor for signs of bleeding #h/o seizure - c/w home Keppra #HTN - c/w home bystolic #FEN: PO fluids / K repleted / Na controlled diet #PPX DVT - SCD's #PT - evaluation for d/c planning #DISPO: M/S, pt considering inpt rehab FULL code d/w Dr. Laxmi Ocampo MD PGY1 - Internal Medicine Visit type - Emergency Visit Emergency Visit: No - New Patient This patient is new to me today: No - Critical Care Critical Care patient: No
[2017-09-18] MEDS: MULTIVITAMINS (DAILY MVI) TABLET (FP) PO SCH (11:32)
[2017-09-18] MEDS: FAMOTIDINE 20 MG/50 ML IVPB 20 MG/50 ML MG IVPB SCH ×2 (11:32→22:20)
[2017-09-18] MEDS: THIAMINE HCL 100 MG TABLET (FP) PO SCH (11:32)
[2017-09-18] MEDS: levETIRAcetam 500 MG TABLET (FP) PO SCH ×2 (11:32→22:19)
[2017-09-18] MEDS: NEBIVOLOL 5 MG TABLET (FP) PO SCH (11:32)
[2017-09-18] MEDS: FOLIC ACID 1 MG TABLET (FP) PO SCH (11:32)
--- NOTE | 2017-09-18 16:53 | EKG ---
Test Reason : Blood Pressure : / mmHG Vent. Rate : 069 BPM Atrial Rate : 069 BPM P-R Int : 176 ms QRS Dur : 102 ms QT Int : 390 ms P-R-T Axes : 045 -18 -22 degrees QTc Int : 417 ms SINUS RHYTHM WITH PREMATURE SUPRAVENTRICULAR COMPLEXES MINIMAL VOLTAGE CRITERIA FOR LVH, MAY BE NORMAL VARIANT SEPTAL INFARCT , AGE UNDETERMINED ABNORMAL ECG WHEN COMPARED WITH ECG OF 15-SEP-2017 04:23, SIGNIFICANT CHANGES HAVE OCCURRED Confirmed by MD Dru, Jordan ([id number]) on 09/18/2017 4:53:08 PM Referred By: HASEEB RAMIREZ Confirmed By:Jordan Gonsales MD
[2017-09-18] MEDS: POTASSIUM CHLORIDE ORAL LIQUID 20 MEQ/15 ML PO SCH (22:19)
[2017-09-19 06:35] LABS: HEMATOCRIT 35.8 % (35.4-49); HEMOGLOBIN 12.6 GM/dL (11.7-16.9); MCH 35.7 pg (25.7-33.7); MCHC 35.3 g/dl (32.0-35.9); MEAN CELL VOLUME 101.1 fl (80-96); MEAN PLT VOLUME 9.3 fl (7.5-11.1); PLATELET COUNT 141 K/MM3 (134-434); RBC 3.54 M/mm3 (4.00-5.60); RDW 17.4 % (11.9-15.9); WHITE BLOOD COUNT 6.2 K/mm3 (4.0-10.0)
[2017-09-19 06:55] LABS: ALBUMIN 3.5 g/dl (3.4-5.0); ANION GAP 12 (8-16); BILIRUBIN,TOTAL 1.6 mg/dL (0.2-1.0); BLOOD UREA NITROGEN 8 mg/dL (7-18); CALCIUM 8.8 mg/dL (8.5-10.1); CHLORIDE 97 mmol/L (98-107); CO2 27 mmol/L (21-32); CREATININE 0.6 mg/dL (0.7-1.3); GLUCOSE,RANDOM 104 mg/dL (74-106); MAGNESIUM 1.9 mg/dL (1.8-2.4); PHOSPHOROUS 3.3 mg/dL (2.5-4.9); POTASSIUM 3.4 mmol/L (3.5-5.1); SGOT/AST 326 U/L (15-37); SGPT/ALT 292 U/L (12-78); SODIUM 136 mmol/L (136-145); TOT PROT 6.7 g/dl (6.4-8.2)
[2017-09-19 06:56] LABS: ALK PHOS 61 U/L (45-117)
--- NOTE | 2017-09-19 07:46 | PN ---
Physical Exam: SUBJECTIVE: Patient seen and examined OBJECTIVE: Vital Signs Period Temp Pulse Resp BP Sys/Valdes Pulse Ox Last 24 Hr 97.7 F-99.6 F 68-84 18-20 127-154/73-90 98 GENERAL: The patient is awake, alert, and fully oriented, in no acute distress. HEAD: Normal with no signs of trauma. EYES: PERRL, extraocular movements intact, sclera anicteric, conjunctiva clear. No ptosis. ENT: Ears normal, nares patent, oropharynx clear without exudates, moist mucous membranes. NECK: Trachea midline, full range of motion, supple. LUNGS: Breath sounds equal, clear to auscultation bilaterally, no wheezes, no crackles, no accessory muscle use. HEART: Regular rate and rhythm, S1, S2 without murmur, rub or gallop. ABDOMEN: Soft, nontender, nondistended, normoactive bowel sounds, no guarding, no rebound, no hepatosplenomegaly, no masses. EXTREMITIES: 2+ pulses, warm, well-perfused, no edema. NEUROLOGICAL: Cranial nerves II through XII grossly intact. Normal speech, gait not observed. PSYCH: Normal mood, normal affect. SKIN: Warm, dry, normal turgor, no rashes or lesions noted Laboratory Results - last 24 hr 09/19/17 06:20 WBC 6.2 RBC 3.54 L Hgb 12.6 Hct 35.8 MCV 101.1 H MCH 35.7 H MCHC 35.3 RDW 17.4 H Plt Count 141 D MPV 9.3 Active Medications Generic Name Dose Route Start Last Admin Trade Name Freq PRN Reason Stop Dose Admin Folic Acid 1 mg 09/16/17 10:09/18/17 11:32 Folic Acid - PO 1 mg DAILY MATTY Administration Famotidine/Sodium Chloride 20 mg in 50 mls @ 100 mls/hr 09/17/17 10:00 22:20 Pepcid 20 Mg Premixed Ivpb - IVPB 100 mls/hr BID MATTY Administration Levetiracetam 500 mg 09/15/17 10:00 09/18/17 22:19 Keppra - PO 500 mg BID MATTY Administration Lorazepam 0.5 mg 09/18/17 07:32 09/18/17 22:29 Ativan Injection - IVPUSH 0.5 mg Q6H PRN Administration ANXIETY Multivitamins/Minerals/Vitamin C 1 tab 09/16/17 10:00 09/18/17 11:32 Tab-A-Vit - PO 1 tab DAILY MATTY Administration Nebivolol 5 mg 09/15/17 10:00 09/18/17 11:32 Bystolic - PO 5 mg DAILY MATTY Administration Ondansetron HCl 4 mg 09/15/17 05:52 09/16/17 15:28 Zofran Injection IVPUSH 4 mg Q4H PRN Administration NAUSEA AND/OR VOMITING Potassium Chloride 40 meq 09/18/17 22:00 09/18/17 22:19 Potassium Chloride Oral Liquid PO 40 meq BID MATTY Administration Thiamine HCl 100 mg 09/16/17 10:00 09/18/17 11:32 Vitamin B1 - PO 100 mg DAILY MATTY Administration ASSESSMENT/PLAN:
[2017-09-19] MEDS ORDERED: PT OWN MED DRAWER 7, Y5N ONE (09:16)
[2017-09-19] MEDS: FAMOTIDINE 20 MG/50 ML IVPB 20 MG/50 ML MG IVPB SCH (10:53)
[2017-09-19] MEDS: FOLIC ACID 1 MG TABLET (FP) PO SCH (10:53)
[2017-09-19] MEDS: levETIRAcetam 500 MG TABLET (FP) PO SCH (10:53)
[2017-09-19] MEDS: MULTIVITAMINS (DAILY MVI) TABLET (FP) PO SCH (10:53)
[2017-09-19] MEDS: NEBIVOLOL 5 MG TABLET (FP) PO SCH (10:53)
[2017-09-19] MEDS: POTASSIUM CHLORIDE ORAL LIQUID 20 MEQ/15 ML PO SCH (10:53)
[2017-09-19] MEDS: THIAMINE HCL 100 MG TABLET (FP) PO SCH (10:53)
--- NOTE | 2017-09-19 12:56 | PN ---
Teaching Attending Note Name of Resident: May Ocampo ATTENDING PHYSICIAN STATEMENT I saw and evaluated the patient. I reviewed the resident's note and discussed the case with the resident. I agree with the resident's findings and plan as documented with exceptions mentioned below. SUBJECTIVE: Patient seen and examined, no dizzziness or abdominal pain, tolerating diet well , diarrhea resolved. OBJECTIVE: Vital Signs Period Temp Pulse Resp BP Sys/Valdes Pulse Ox Last 24 Hr 97.7 F-99.6 F 68-78 18-20 127-135/73-90 98 Intake & Output 09/16/17 09/17/17 09/18/17 09/19/17 23:59 23:59 23:59 23:59 Intake Total 3425 1700 750 550 Output Total 3750 Balance -325 1700 750 550 General: lying in bed in no acute distress Abdomen: soft, NT, ND, positive bowel sounds extremities: no tremors Home Medication List Medication Instructions Recorded Confirmed Type Icosapent Ethyl [Vascepa] 1 gm PO DAILY 09/15/17 History Active Medications Generic Name Dose Route Start Last Admin Trade Name Freq PRN Reason Stop Dose Admin Folic Acid 1 mg 09/16/17 10:00 09/19/17 10:53 Folic Acid - PO 1 mg DAILY MATTY Administration Famotidine/Sodium Chloride 20 mg in 50 mls @ 100 mls/hr 09/17/17 10:00 10:53 Pepcid 20 Mg Premixed Ivpb - IVPB 100 mls/hr BID MATTY Administration Levetiracetam 500 mg 09/15/17 10:00 09/19/17 10:53 Keppra - PO 500 mg BID MATTY Administration Lorazepam 0.5 mg 09/18/17 07:32 09/18/17 22:29 Ativan Injection - IVPUSH 0.5 mg Q6H PRN Administration ANXIETY Multivitamins/Minerals/Vitamin C 1 tab 09/16/17 10:00 09/19/17 10:53 Tab-A-Vit - PO 1 tab DAILY MATTY Administration Nebivolol 5 mg 09/15/17 10:00 09/19/17 10:53 Bystolic - PO 5 mg DAILY MATTY Administration Ondansetron HCl 4 mg 09/15/17 05:52 09/16/17 15:28 Zofran Injection IVPUSH 4 mg Q4H PRN Administration NAUSEA AND/OR VOMITING Potassium Chloride 40 meq 09/18/17 22:00 09/19/17 10:53 Potassium Chloride Oral Liquid PO 40 meq BID MATTY Administration Thiamine HCl 100 mg 09/16/17 10:00 09/19/17 10:53 Vitamin B1 - PO 100 mg DAILY MATTY Administration Laboratory Results - last 24 hr 09/19/17 09/19/17 06:20 06:20 WBC 6.2 RBC 3.54 L Hgb 12.6 Hct 35.8 MCV 101.1 H MCH 35.7 H MCHC 35.3 RDW 17.4 H Plt Count 141 D MPV 9.3 Sodium 136 Potassium 3.4 L Chloride 97 L Carbon Dioxide 27 Anion Gap 12 BUN 8 Creatinine 0.6 L Creat Clearance w eGFR > 60 Random Glucose 104 Calcium 8.8 Phosphorus 3.3 D Magnesium 1.9 Total Bilirubin 1.6 H D AST 326 H ALT 292 H Alkaline Phosphatase 61 Total Protein 6.7 Albumin 3.5 ASSESSMENT AND PLAN: 56yo M wtih PMH continuous ETOH dependence, ETOH withdrawal seziures, HTN and hypertriglyceridemia presented to the ER with nausea and vomiting and found to have acute pancreatitis -Acute pancreatitis, likely alcohol mediated -Acute transaminiitis, likely alcohol related -DIarrhea -Dizziness, ?hypovolumia +/- alcohol related neuropathy with autonomic dysfunction -ETOH withdrawal syndrome/Alcohol abuse/dependence -Hypokalemia -Thrombocytopenia, suspect alcohol mediated bone marrow suppression -Macrocytic anemia -Seizures, h/o alcohol withdrawal seizures -HTN Plan: Tolerating diet well, outpatient follow up for Gall bladder polyp LFTs trended down, INR normal on admission Dizziness resolved, neg orthostatics, EKG nonconcerning. Stool C difficile sent but unlikely as diarrhea resolved. S/p librium taper, d/c ativan. REplete K PLatelets improved, SCDs when in bed Outpatient h/h followup, recent colonoscopy neg. Continue keppra. Agreable to inpatient detox rehab but unable given lack of insurance. Provide resources on dc and follow up with PCP dc home today with outpatient PCP follow up and LFTs monitoring. ETOH cessation counseling.
[2017-09-19 14:33] VITALS: PULSE 64; TEMP 98.4
--- NOTE | 2017-09-19 17:35 | DS ---
Physical Exam: SUBJECTIVE: Patient seen and examined OBJECTIVE: Vital Signs Period Temp Pulse Resp BP Sys/Valdes Pulse Ox Last 24 Hr 97.7 F-99.6 F 64-76 18-20 127-135/73-83 98-98 PHYSICAL EXAM GENERAL: The patient is awake, alert, and fully oriented, in no acute distress. HEAD: Normal with no signs of trauma. EYES: PERRL, extraocular movements intact, sclera anicteric, conjunctiva clear. ENT: Ears normal, nares patent, oropharynx clear without exudates, moist mucous membranes. NECK: Trachea midline, full range of motion, supple. LUNGS: Breath sounds equal, clear to auscultation bilaterally, no wheezes, no crackles, no accessory muscle use. HEART: Regular rate and rhythm, S1, S2 without murmur, rub or gallop. ABDOMEN: Soft, nontender, nondistended, normoactive bowel sounds, no guarding, no rebound, no hepatosplenomegaly, no masses. EXTREMITIES: 2+ pulses, warm, well-perfused, no edema. NEUROLOGICAL: Cranial nerves II through XII grossly intact. Normal speech, gait not observed. PSYCH: Normal mood, normal affect. SKIN: Warm, dry, normal turgor, no rashes or lesions noted. LABS Laboratory Results - last 24 hr 09/19/17 09/19/17 06:20 06:20 WBC 6.2 RBC 3.54 L Hgb 12.6 Hct 35.8 MCV 101.1 H MCH 35.7 H MCHC 35.3 RDW 17.4 H Plt Count 141 D MPV 9.3 Sodium 136 Potassium 3.4 L Chloride 97 L Carbon Dioxide 27 Anion Gap 12 BUN 8 Creatinine 0.6 L Creat Clearance w eGFR > 60 Random Glucose 104 Calcium 8.8 Phosphorus 3.3 D Magnesium 1.9 Total Bilirubin 1.6 H D AST 326 H ALT 292 H Alkaline Phosphatase 61 Total Protein 6.7 Albumin 3.5 HOSPITAL COURSE: Date of Admission:09/15/17 Date of Discharge: 09/19/17 Discharge Summary Reason For Visit: PANCREATITIS ALCOHOL ABUSE Current Active Problems Alcohol dependence with uncomplicated withdrawal (Acute) Pancreatitis (Acute) Alcohol abuse (Chronic) Condition: Stable - Instructions Diet, Activity, Other Instructions: You were admitted to the hospital for pancreatitis. You were also detoxed from alcohol. Follow-ups: -Make an appointment to see Dr. Etienne, your primary care physician, within 1 week (office # [phone]). You need to have your liver function tested in 1 week. You were found to have a possible polyp in your gallbladder, which should be followed regularly with imaging. Let Dr. Etienne know about this finding. May need a surgeon referral accordingly. -Strongly advise alcohol cessation. We have provided you with a list of resources and rehab programs. -You have low Potassium. You should eat Potassium rich foods. Medications: -Continue your regular home medications as prescribed. -Avoid Over the Counter drugs without discussion with your doctor. -Do not drive or operate heavy machinery or be alone with children will seen by your doctor and cleared by neurologist. -Avoid Tylenol more than 2 g in 24 hours. Notify your doctor or come to ED if any new belly pain, jaundice, fevers, chills or new concerns. Referrals: Brooks Etienne MD [Staff Physician] - 1 Week Disposition: HOME - Home Medications Comprehensive Discharge Medication List: Ambulatory Orders levETIRAcetam [Keppra -] 500 mg PO BID #60 tablet 08/24/17 Icosapent Ethyl [Vascepa] 1 gm PO DAILY 09/15/17 Citalopram Hydrobromide [Celexa -] 25 mg PO DAILY 09/19/17 Folic Acid 1 mg PO DAILY 09/19/17
[2017-09-19 18:48] VITALS: BP 128/74
== END 2017-09-19 18:15 | disposition home or self-care (01) | DRG 282 ==
LOC: JER 21:31 → JERBED 09-15 04:10 → UNDOADMIN 09-15 04:19 → J2W 09-15 19:00
PROVIDERS: ADMIT Internal Medicine; ATTEND Hospitalist
DX: K85.20 Alcohol induced acute pancreatitis without necrosis or infection (principal); F10.230 Alcohol dependence with withdrawal, uncomplicated; I10 Essential (primary) hypertension; E78.1 Pure hyperglyceridemia; R74.0 Nonspecific elevation of levels of transaminase and lactic acid dehydrogenase [LDH]; E87.6 Hypokalemia; D69.6 Thrombocytopenia, unspecified; D53.9 Nutritional anemia, unspecified; R42 Dizziness and giddiness; R19.7 Diarrhea, unspecified; R10.13 Epigastric pain; R56.9 Unspecified convulsions
CPT/HCPCS: 36415; 71045-TC-FY; 76705-TC; 80053; 80076; 80307; 82962; 83615; 83690; 83735; 84100; 84478; 85025; 85027; 85610; 85730; 87205; 87324; 87449; 90732; 93005; 93010; 97116-GP; 97161-GP; 99285-25; G0009; J7030

== ENCOUNTER 2020-01-12 12:31 | Emergency (ER) | payer OTHER ==
[2020-01-12 12:36] VITALS: BP 120/83; PULSE 67; TEMP 98.5; BMI 28.2
[2020-01-12] MEDS ORDERED: TETRACAINE 0.5% OPHTH SOLN 2 ML BOTTLE OD ONE (12:51)
[2020-01-12] MEDS ORDERED: FLUORESCEIN NA 1 EA STRIP OD ONE (12:52)
[2020-01-12] MEDS ORDERED: FLUORESCEIN NA 1 EA STRIP ONE (12:52)
[2020-01-12] MEDS ORDERED: TETRACAINE 0.5% OPHTH SOLN 2 ML BOTTLE ONE (12:52)
[2020-01-12] MEDS ORDERED: LORATADINE 10 MG TABLET ONE (13:09)
[2020-01-12] MEDS ORDERED: LORATADINE 10 MG TABLET PO ONE (13:13)
--- NOTE | 2020-01-12 13:15 | PDOC ---
History of Present Illness - General Chief Complaint: Eye Problem Stated Complaint: BILAT EYE ITCHING Time Seen by Provider: 01/12/20 12:41 History Source: Patient Exam Limitations: No Limitations - History of Present Illness Initial Comments: Geoff is a 59 yo M w a hx of HTN and alcohol use who presents to the [place] ER with 2 days of right eye discomfort, a red and itchy eye, and swelling beneath his right eyelid. The patient states he has had chronic bilateral eye and ear fullness for years but he presents today bc of the right lower eyelid swelling. 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 Patient states he has not taken any meds for allergies. Denies pain with eye movements, denies blurry vision, denies decreased visual acuity. Denies fevers, chills, nausea, vomiting, headache, neck pain. PCP: Dr. Etienne PSH: None reported Allergies: seasonal. NKDA Social Hx: Smokes 1 PPD. Denies currently drinking any alcohol and denies other substance usage Past History - Medical History Allergies/Adverse Reactions: Allergies Allergy/AdvReac Type Severity Reaction Status Date / Time No Known Allergies Allergy Verified 01/12/20 12:32 Home Medications: Ambulatory Orders levETIRAcetam [Keppra -] 500 mg PO BID #60 tablet 08/24/17 Icosapent Ethyl [Vascepa] 1 gm PO DAILY 09/15/17 Citalopram Hydrobromide [Celexa -] 25 mg PO DAILY 09/19/17 Folic Acid 1 mg PO DAILY 09/19/17 Erythromycin 0.5% Eye Ointment [Erythromycin 0.5% Eye Ointment -] 1 applic OD BID 10 Days #1 tube 01/12/20 Loratadine [Claritin -] 10 mg PO DAILY #30 tablet 01/12/20 Anemia: No Asthma: No Cancer: No Cardiac Disorders: No CVA: No COPD: No Dementia: No Diabetes: No GI Disorders: No Disorders: No HTN: Yes Hypercholesterolemia: No Kidney Stones: No Liver Disease: No Seizures: Yes (etoh related seizures states last was yesterday.) Thyroid Disease: No - Reproductive History Testicular Surgery: No - Psycho-Social/Smoking History Smoking History: Current every day smoker Have you smoked in the past 12 months: Yes Number of Cigarettes Smoked Daily: 20 If you are a former smoker, when did you quit?: Pt states he quit 1 month ago. Information on smoking cessation initiated: Yes 'Breaking Loose' booklet given: 08/20/17 - Substance Abuse Hx (Audit-C & DAST Scrn) How often the patient has a drink containing alcohol: Never Score: In Men: 4 or > Positive; In Women: 3 or > Positive: 0 Screen Result (Pos requires Nsg. Audit-10AR): Negative In the last yr the pt used illegal drug/Rx for NonMed reason: No Score: Yes response is considered Positive: 0 Screen Result (Positive result requires Nsg. DAST-10): Negative Review of Systems - Review of Systems Able to Perform ROS?: Yes Comments:: CONSTITUTIONAL: Absent: fever, no chills, no fatigue EYES: Absent: visual changes ENT: Absent: ear pain, no sore throat CARDIOVASCULAR: Absent: chest pain, no palpitations RESPIRATORY: Absent: cough, no SOB GI: Absent: abdominal pain, no nausea, no vomiting, no constipation, no diarrhea GENITOURINARY: Absent: dysuria, no frequency, no hematuria MUSKULOSKELETAL: Absent: back pain, no arthralgia, no myalgia SKIN: Absent: rash NEURO: Absent: headache *Physical Exam - Vital Signs Last Vital Signs Temp Pulse Resp BP Pulse Ox 98.5 F 67 19 120/83 98 01/12/20 12:32 01/12/20 12:32 01/12/20 12:32 01/12/20 12:32 01/12/20 12:32 - Physical Exam EYES: - The right eye has conjunctival injection. There is also a small hordeolum on the inner medial aspect of the right lower eyelid which is mildly tender to palpation. Visual acuity. OD:20/25 OS:20/40 - Patient correctly identifies amount of fingers in all 4 visual wood of each eye. - Normal color perception - EOMI, PERLLA Sher Lamp with flourescin application: No flourescin uptake. - The left eye is normal in appearance without conjunctival injection or any other visible abnormalities. GENERAL: Well-appearing, well-nourished. No apparent distress. HEENT: Normocephalic, atraumatic. PERRL, EOM intact. CARDIOVASCULAR: Normal S1, S2. Regular rate and rhythm. PULMONARY: No evidence of respiratory distress. Lungs clear to auscultation bilaterally. No wheezing, rales or rhonchi. ABDOMEN: Soft, non-distended, non-tender. EXTREMITIES: Normal ROM in all four extremities. No gross deformities. SKIN: Warm, dry. No rash NEUROLOGICAL: No focal neurological deficits. ED Treatment Course - Medications Given in the ED: ED Medications Discontinued Medications Generic Name Dose Route Start Last Admin Trade Name Saundra PRN Reason Stop Dose Admin Fluorescein Sodium 1 ea 01/12/20 12:52 01/12/20 12:55 Fluorets - OD 01/12/20 12:53 1 ea ONCE ONE Administration Tetracaine HCl 1 drop 01/12/20 12:51 01/12/20 12:55 Pontocaine OD 01/12/20 12:52 1 drop ONCE ONE Administration Medical Decision Making - Medical Decision Making Geoff is a 59 yo M w a hx of HTN and alcohol use who presents to the [place] ER with 2 days of right eye discomfort, a red and itchy eye, and swelling beneath his right eyelid. The patient states he has had chronic bilateral eye and ear fullness for years but he presents today bc of the right lower eyelid swelling. 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 Patient states he has not taken any meds for allergies. Denies pain with eye movements, denies blurry vision, denies decreased visual acuity. Denies fevers, chills, nausea, vomiting, headache, neck pain. Vital Signs Temp Pulse Resp BP Pulse Ox 98.5 F 67 19 120/83 98 01/12/20 12:32 01/12/20 12:32 01/12/20 12:32 01/12/20 12:32 01/12/20 12:32 DDx IBNLT: Hordeolum/stye vs chalazion vs corneal abrasion/ulcer, conjunctivitis Plan: Flourescin stain, re-assess Sher lamp exam: No uptake in either eye MDM: This is likely a hordeoulum and will give the patient warm compresses. This should drain spontaneously. Will also send erythromycin ointment to the patients pharmacy for him to apply twice daily for the next 7 to 10 days. Will also send a script for claritin as his eyes and ears are likely pruritic and full 2/2 allergies. The patient appears clinically sober, is A&O x4, and appears to be capable and have capacity to make reasonable decisions. The patient states they are currently in the emergency department, knows who the president is, states the correct time, correct day, and correct month. The patient is ambulatory in ER and has walked around the nursing station multiple times with a straight gait, and is not ataxic. Tolerating PO well, ate a sandwich and drank juice. Denies having any SI or HI. Patient states will not be driving home. I discussed the physical exam findings, ancillary test results and final diagnoses with the patient. I answered all of the patient's questions. The patient was satisfied with the care received and felt comfortable with the discharge plan and treatment plan. The patient will call their primary care physician within 24 hours to arrange follow-up and will return to the Emergency Department with any new, persistent or worsening symptoms. Dispo: Home with erythromycin, claritin, PCP fu and return precautions. Please note, this clinical encounter is taking place during a federal and state health care emergency attributable to the novel Farias Virus pandemic. The [employer] of the Department of Health and Human Services has declared, pursuant to the Public Health Service Act 319F-3 (42 U.S.C. 247d-6d), that a covered persons activities related to medical countermeasures against COVID-19 will be immune from liability under Federal and State law. Discharge - Discharge Information Problems reviewed: Yes Clinical Impression/Diagnosis: Hordeolum externum (stye) Qualifiers: Laterality: right Eyelid: lower Qualified Code(s): H00.012 - Hordeolum externum right lower eyelid Condition: Improved Disposition: HOME - Admission No - Additional Discharge Information Prescriptions: Loratadine [Claritin -] 10 mg PO DAILY #30 tablet Erythromycin 0.5% Eye Ointment [Erythromycin 0.5% Eye Ointment -] 1 applic OD BID 10 Days #1 tube - Follow up/Referral Referrals: Brooks Etienne MD [Staff Physician] - - Patient Discharge Instructions Patient Printed Discharge Instructions: DI for Hordeolum Additional Instructions: You came into the ER with right eye pain. We believe you have a stye. Please goto the pharmacy and citrus picker the erythromycin ointment we sent to your pharmacy and apply it to your right eye twice a day for the next 7 to 10 days. You must return to the Emergency Department with any new complaints, if your symptoms persist and do not improve or if you develop any other new or worsening concerns. As discussed, please call to follow up with your Primary Care physician in 1-2 days to discuss what happened to you in the emergency room, and make sure you are being looked after and taken care of. Your emergency room visit is not complete without this follow up appointment. Thank you for coming to the [facility]. We hope you feel better soon! Print Language: ICELANDIC - Post Discharge Activity
--- NOTE | 2020-01-12 14:30 | PDOC ---
Attending Attestation - Resident Resident Name: BrunoCatalino - ED Attending Attestation I have performed the following: I have examined & evaluated the patient, The case was reviewed & discussed with the resident, I agree w/resident's findings & plan, Exceptions are as noted - HPI HPI: 01/12/20 14:14 59 yo male with no pmhx here with c/o right eye redness, swelling. has had red eyes, itching and watery eyes for years, but recently felt the eye right side got worse. also had sensation of fullness in bilateral ears. no n/v no f/c no trauma to eyes. 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 no change to vision. started 2 days ago, then got worse yesterday. has had several styes in the past which he draines with a needle. - Physicial Exam PE: 01/12/20 14:30 awake alert lungs clear bilat heart rrr no mrg right eye mild conj injection, mucous drainage. lower lid with conjunctival side with small hordeolum noted on inner lid. minimal lid swelling. no flourscin uptake. left eye mild conjected. bilat TM clear with serous fluid. - Medical Decision Making 01/12/20 14:31 59 yo male with no pmhx here with right eye hordeolum, redness, and bilat eye itching. plan to treat for allergic conjuncitivits, and hordeolum. given topical opth polytrim, and recommend warm compress. 01/12/20 14:32 also recommend zyrtec allergy medication. Discharge - Discharge Information Problems reviewed: Yes Clinical Impression/Diagnosis: Allergic conjunctivitis Hordeolum externum (stye) Qualifiers: Laterality: right Eyelid: lower Qualified Code(s): H00.012 - Hordeolum externum right lower eyelid Condition: Improved Disposition: HOME - Additional Discharge Information Prescriptions: Loratadine [Claritin -] 10 mg PO DAILY #30 tablet Erythromycin 0.5% Eye Ointment [Erythromycin 0.5% Eye Ointment -] 1 applic OD BID 10 Days #1 tube - Follow up/Referral Referrals: Brooks Etienne MD [Staff Physician] - - Patient Discharge Instructions Patient Printed Discharge Instructions: DI for Hordeolum Additional Instructions: You came into the ER with right eye pain. We believe you have a stye. 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 You must return to the Emergency Department with any new complaints, if your symptoms persist and do not improve or if you develop any other new or worsening concerns. As discussed, please call to follow up with your Primary Care physician in 1-2 days to discuss what happened to you in the emergency room, and make sure you are being looked after and taken care of. Your emergency room visit is not complete without this follow up appointment. Thank you for coming to the [place] ER. We hope you feel better soon! Print Language: BELARUSIAN - Post Discharge Activity
== END 2020-01-12 13:25 | disposition home or self-care (01) ==
LOC: FER 12:31
DX: H00.012 Hordeolum externum right lower eyelid (principal)
CPT/HCPCS: 99283-25